=== PATIENT | male | born 1945 | race Caucasian/White ===

== ENCOUNTER 2020-05-31 16:07 | Emergency (ER) | payer MEDICARE, BC ==
[2020-05-31] MEDS ORDERED: Lidocaine 1% (PF) 30 ML VIAL ONE (19:13)
[2020-05-31] MEDS ORDERED: Rabies Vaccine Human 2.5 UNITS VIAL IM ONE (20:00)
== END 2020-05-31 20:44 | disposition home or self-care (01) ==
LOC: ERS 16:07
DX: S01.352A Open bite of left ear, initial encounter (principal); S01.312A Laceration without foreign body of left ear, initial encounter; E78.5 Hyperlipidemia, unspecified; Z23 Encounter for immunization; W55.01XA Bitten by cat, initial encounter
CPT/HCPCS: 12013; 90376; 90471; 90675; 96372; J2001

== ENCOUNTER → 2020-06-03 | Day surgery (SDC) | payer MEDICARE, BC ==
[~2020-06-03] MED LIST: Rabies Vaccine Human 2.5 UNITS VIAL IM ONE
== END ==
LOC: ER/OP 10:41
DX: Z29.14 Encounter for prophylactic rabies immune globulin (principal)
CPT/HCPCS: 90471; 90675

== ENCOUNTER → 2020-06-07 | Day surgery (SDC) | payer MEDICARE, BC | LOC: ER/OP 09:15 | DX: Z29.14 Encounter for prophylactic rabies immune globulin (principal) | CPT/HCPCS: 90471; 90675 ==

== ENCOUNTER 2020-06-14 13:01 | Emergency (ER) | payer MEDICARE, BC ==
[2020-06-14] MEDS ORDERED: Rabies Vaccine Human 2.5 UNITS VIAL IM ONE (14:30)
== END 2020-06-14 14:58 | disposition home or self-care (01) ==
LOC: ERS 13:01
DX: Z23 Encounter for immunization (principal); E78.5 Hyperlipidemia, unspecified
CPT/HCPCS: 90471; 90675